=== PATIENT | female | born 1985 | race American Indian/Alaskan Native ===

== ENCOUNTER 2021-06-05 14:45 | Emergency (ER) | payer MEDICARE ==
[2021-06-05] MEDS ORDERED: TETANUS,DIPH,PERTUSS(ACELL) VACCINE 0.5 ML SYRINGE IM ONE (16:46)
--- NOTE | 2021-06-05 16:49 | Emergency Department Report ---
HPI - General Chief Complaint: Psych Time Seen by Provider: 06/05/21 16:14 - HPI HPI: MSE 3 The patient is a 36-year-old female present with a chief complaint of suicidal ideation. The patient states she woke up this morning tearful feeling depressed and suicidal. Patient states she used a razor to make superficial abrasions to her left wrist earlier today. Patient denies any other attempts at harming herself. The patient is uncertain when she last received a tetanus shot ED Past Medical Hx - Past Medical History Hx Psychiatric Treatment: Yes (Manic depression, OCD, PTSD) Additional medical history: Anemia - Surgical History Additional Surgical History: Oral surgery - Family History Family history: no significant - Social History Smoking Status: Current Every Day Smoker (1 pack/day) Substance Use Type: Marijuana - Medications Home Medications: Home Medications Medication Instructions Recorded Confirmed Last Taken Type Sertraline [Zoloft] 25 mg PO QDAY #30 tab 06/06/21 Unknown Rx busPIRone [Buspar] 5 mg PO BID #60 tab 06/06/21 Unknown Rx ED Review of Systems ROS: Stated complaint: MENTAL HEALTH Other details as noted in HPI Constitutional: no symptoms reported Eyes: denies: eye pain ENT: denies: throat pain Respiratory: no symptoms reported Cardiovascular: denies: chest pain Endocrine: no symptoms reported Gastrointestinal: denies: abdominal pain Genitourinary: denies: dysuria Musculoskeletal: denies: back pain Neurological: denies: headache Psychiatric: depression, suicidal thoughts Physical Exam - Physical Exam Vital Signs: Vital Signs 06/05/21 14:51 Temperature 98.7 F Pulse Rate 102 H Respiratory 20 Rate Blood Pressure 135/82 [Right] O2 Sat by Pulse 100 Oximetry Physical Exam: GENERAL: The patient is well-developed well-nourished female lying on stretcher not appearing to be in acute distress. [] HEENT: Normocephalic. Atraumatic. Extraocular motions are intact. Patient has moist mucous membranes. NECK: Supple. Trachea midline CHEST/LUNGS: Clear to auscultation. There is no respiratory distress noted. HEART/CARDIOVASCULAR: Regular. There is no tachycardia. There is no gallop rub or murmur. ABDOMEN: Abdomen is soft, nontender. Patient has normal bowel sounds. There is no abdominal distention. SKIN: There are several linear superficial abrasions to the left wrist. No lac erations seen. There is no diaphoresis. NEURO: The patient is awake, alert, and oriented. The patient is cooperative. The patient has no focal neurologic deficits. The patient has normal speech. GCS 15 MUSCULOSKELETAL: There is no evidence of acute injury. ED Course Vital Signs 06/05/21 14:51 Temperature 98.7 F Pulse Rate 102 H Respiratory 20 Rate Blood Pressure 135/82 [Right] O2 Sat by Pulse 100 Oximetry ED Medical Decision Making - Lab Data Result diagrams: 06/05/21 16:38 06/05/21 16:38 Laboratory Tests 06/05/21 06/05/21 06/05/21 16:38 16:38 16:38 WBC 8.4 RBC 4.30 Hgb 7.7 L Hct 26.3 L MCV 61 L MCH 18 L MCHC 29 L RDW 19.1 H Plt Count 399 Lymph % (Auto) 20.5 [place] % (Auto) 7.1 Eos % (Auto) 0.9 Baso % (Auto) 1.2 Lymph # (Auto) 1.7 [place] # (Auto) 0.6 Eos # (Auto) 0.1 Baso # (Auto) 0.1 Seg Neutrophils % 70.3 H Seg Neutrophils # 5.9 Sodium 141 Potassium 3.2 L Chloride 100.8 Carbon Dioxide 24 Anion Gap 19 BUN 5 L Creatinine 0.6 Estimated GFR > 60 BUN/Creatinine Ratio 8 Glucose 84 Calcium 9.1 Total Bilirubin 0.50 AST 8 ALT < 5 L Alkaline Phosphatase 48 Total Protein 8.3 H Albumin 4.1 Albumin/Globulin Ratio 1.0 HCG, Qual Salicylates < 0.3 L Acetaminophen Plasma/Serum Alcohol 06/05/21 06/05/21 06/05/21 16:38 16:38 16:38 WBC RBC Hgb Hct MCV MCH MCHC RDW Plt Count Lymph % (Auto) [place] % (Auto) Eos % (Auto) Baso % (Auto) Lymph # (Auto) [place] # (Auto) Eos # (Auto) Baso # (Auto) Seg Neutrophils % Seg Neutrophils # Sodium Potassium Chloride Carbon Dioxide Anion Gap BUN Creatinine Estimated GFR BUN/Creatinine Ratio Glucose Calcium Total Bilirubin AST ALT Alkaline Phosphatase Total Protein Albumin Albumin/Globulin Ratio HCG, Qual Negative Salicylates Acetaminophen 5.0 L Plasma/Serum Alcohol < 0.01 - Differential Diagnosis Suicidal ideation Critical care attestation.: If time is entered above; I have spent that time in minutes in the direct care of this critically ill patient, excluding procedure time. ED Disposition Clinical Impression: Suicidal ideation, Abrasion of wrist, left, Bipolar disorder Disposition: 01 HOME / SELF CARE / HOMELESS Is pt being admited?: No Does the pt Need Aspirin: No Condition: Stable Instructions: Managing Bipolar Disorder, Suicidal Feelings: How to Help Yourself, Abrasion, [id number] Additional Instructions: Professional and Agency Contacts To help Resolve Crises(22/01) OR Crisis Line: Suicide Prevention Line: Crisis Text Line: Text START to [phone] Emergency: 911 Outpatient COMMUNITY Behavioral Health Resources: [facility]: [facility] [address] [place], [place] [address] ULISSES: [facility] [address] [place] [address] SIL[place]: [facility] - [address] [place] [address] Sunday thru Sunday - 8am - 5pm [facility] Service Address: [address] [place] [address] GIO: [facility] Address: [address] [place] [address] Sunday thru Sunday- 7am-2pm [facility] Address: [address] [place] [address] Sunday thru Sunday: 8:30AM-5PM . Prescriptions: busPIRone [Buspar] 5 mg PO BID #60 tab Sertraline [Zoloft] 25 mg PO QDAY #30 tab Referrals: PRIMARY CARE, [Primary Care Provider] - 3-5 Days
[2021-06-05 16:53] LABS: Basophils # (Auto) 0.1 K/mm3 (0.0-0.1); Basophils % (Auto) 1.2 % (0.0-1.8); Eosinophils # (Auto) 0.1 K/mm3 (0.0-0.4); Eosinophils % (Auto) 0.9 % (0.0-4.3); Lymphocytes # (Auto) 1.7 K/mm3 (1.2-5.4); Lymphocytes % (Auto) 20.5 % (13.4-35.0); Mean Corpuscular HGB Conc 29 % (30-34); Monocytes # (Auto) 0.6 K/mm3 (0.0-0.8); Monocytes % (Auto) 7.1 % (0.0-7.3); Platelet Count 399 K/mm3 (140-440); Red Cell Distribution Width 19.1 % (13.2-15.2)
[2021-06-05 17:09] LABS: Hematocrit 26.3 % (30.3-42.9); Hemoglobin 7.7 gm/dl (10.1-14.3); Mean Corpuscular Volume 61 fl (79-97)
[2021-06-05 17:17] LABS: Albumin 4.1 g/dL (3.9-5); Blood Urea Nitrogen 5 mg/dL (7-17); Calcium 9.1 mg/dL (8.4-10.2); Hemolysis Index 3
[2021-06-05 17:19] LABS: Alanine Aminotransferase < 5 units/L (7-56); BUN/Creatinine Ratio 8
[2021-06-05] MEDS ORDERED: POTASSIUM CHLORIDE ER 20 MEQ TAB PO ONE (19:40)
[2021-06-05] MEDS ORDERED: LORazepam 1 MG TAB PO ONE (23:52)
[2021-06-06 02:09] LABS: Amphetamine Screen,Urine Negative; Benzodiazepines Screen,Urine Negative; Cocaine Screen,Urine Negative; Methadone Screen,Urine Negative; Opiate Screen,Urine Negative
[2021-06-06 02:42] LABS: Cannabinoid Screen,Urine PRESUMPTIVE POSITIVE
[2021-06-06 02:50] LABS: Bilirubin,Urine NEG (Negative); Blood,Urine LG (Negative); Color,Urine Amber (Yellow); Mucus,Urine 3+ /HPF
[2021-06-06 03:11] LABS: RBC,Urine > 182.0 /HPF (0.0-6.0)
--- NOTE | 2021-06-06 12:08 | Consultation ---
History of Present Illness - Reason for Consult Consult date: 06/06/21 Reason for consult: SI, anxiety - History of Present Psychiatric Illness The patient was seen today. She is calm and cooperative. She is a/o x 3. The patient says she came in for depression and feeling suicidal. She says she took her fingernails and scratched her wrist because she was so anxious. I asked the patient again what she cut herself with. She says "I took my nails and did it." She shows me superficial scratches on her wrist. The patient says "my anxiety got the best of me." She says "but whatever they game me for my anxiety helped and it slowed my thoughts down. It made me think." The patient says she feels better. The patient says "I'm not suicidal and I don't feel anxious anymore either." She is asking me to send her home "with the little white pill they gave me for anxiety." The patient then says "it was the lack of sleep. Last night was the first night I slept in days." The patient says she has a history of PTSD, OCD, manic depressive, and Bipolar." She says she lives with her and her children. The patient denies illicit drug use outside of THC, and alcohol. The p atient says she's from "[facility] and has only been here 4 months." PAST PSYCHIATRIC HISTORY: Diagnoses: Bipolar, OCD, PTSD Suicide attempts or Self-harm behavior: Denies Prior psychiatric hospitalizations: yes Substance Abuse history: Denies Previous psychiatric medications tried: denies Outpatient treatment: Denies PAST MEDICAL HISTORY: None reported or document Family Psychiatric History: None reported or documented SOCIAL HISTORY Marital Status: states Living Arrangements: states with and kids Employment Status: unemployed Access to guns/weapons: Denies Education: History of Abuse: Denies Legal History: Denies REVIEW OF SYSTEMS Constitutional: Negative for weight loss ENT: Negative for stridor Respiratory: Negative for cough or hemoptysis All other systems reviewed and are negative MENTAL STATUS EXAMINATION General Appearance and Behavior: Age appropriate, good hygiene, wearing appropriate clothes. calm, cooperative Cooperation: cooperative Psychomotor Behavior: Psychomotor normal Mood: better Affect and affective range: congruent with stated mood Thought Process: goal directed Thought Content: None Speech: Normal tone and pace Suicidal Ideation: Denies Homicidal Ideation: Denies Hallucinations: Denies Delusions: None elicited Impulse Control: Limited Insight and Judgment: Limited Memory: limited Attention: Attentive Orientation: alert and oriented Assessment and Plan (1) Bipolar Disorder Treatment Plan d/c 1013 Zoloft 25mg po daily Buspar 5mg po BID Sitter: Per primary Medical: per primary Disposition: Do not recommend acute psychiatric inpatient Dye Room Helper to give the patient all necessary resources and discuss safety plan Will sign off. Thanks Case staffed with Dr Guerrero Medications and Allergies Allergies Allergy/AdvReac Type Severity Reaction Status Date / Time Penicillins Allergy Rash Verified 06/05/21 14:51 Home Medications Medication Instructions Recorded Confirmed Last Taken Type Sertraline [Zoloft] 25 mg PO QDAY #30 tab 06/06/21 Unknown Rx busPIRone [Buspar] 5 mg PO BID #60 tab 06/06/21 Unknown Rx Mental Status Exam - Vital signs Last Vital Signs Temp 98.7 F 06/05/21 14:51 Pulse 102 H 06/05/21 14:51 Resp 20 06/05/21 14:51 BP 135/82 06/05/21 14:51 Pulse Ox 98 06/06/21 09:16 Results Result Diagrams: 06/05/21 16:38 06/05/21 16:38 Abnormal lab results 06/05/21 06/05/21 06/05/21 Range/Units 16:38 16:38 16:38 Hgb 7.7 L (10.1-14.3) gm/dl Hct 26.3 L (30.3-42.9) % MCV 61 L (79-97) fl MCH 18 L (28-32) pg MCHC 29 L (30-34) % RDW 19.1 H (13.2-15.2) % Seg Neutrophils % 70.3 H (40.0-70.0) % Potassium 3.2 L (3.6-5.0) mmol/L BUN 5 L (7-17) mg/dL ALT < 5 L (7-56) units/L Total Protein 8.3 H (6.3-8.2) g/dL Ur Specific [place] (1.003-1.030) Urine WBC (Auto) (0.0-6.0) /HPF Salicylates < 0.3 L (2.8-20.0) mg/dL Acetaminophen (10.0-30.0) ug/mL 06/05/21 06/06/21 Range/Units 16:38 01:07 Hgb (10.1-14.3) gm/dl Hct (30.3-42.9) % MCV (79-97) fl MCH (28-32) pg MCHC (30-34) % RDW (13.2-15.2) % Seg Neutrophils % (40.0-70.0) % Potassium (3.6-5.0) mmol/L BUN (7-17) mg/dL ALT (7-56) units/L Total Protein (6.3-8.2) g/dL Ur Specific [place] 1.031 H (1.003-1.030) Urine WBC (Auto) 26.0 H (0.0-6.0) /HPF Salicylates (2.8-20.0) mg/dL Acetaminophen 5.0 L (10.0-30.0) ug/mL All other labs normal.
[2021-06-06 13:20] VITALS: BP 112/60
--- NOTE | 2021-06-06 15:53 | Emergency Department Report ---
Blank Doc - Documentation Documentation: 36-year-old female medically cleared and then subsequently cleared by [facility] for discharge with meds. Vital signs unremarkable. No events documented overnight
== END 2021-06-06 16:21 | disposition home or self-care (01) ==
LOC: ED 14:45
DX: R45.851 Suicidal ideations (principal); F31.9 Bipolar disorder, unspecified; S60.812A Abrasion of left wrist, initial encounter; F17.200 Nicotine dependence, unspecified, uncomplicated; F12.90 Cannabis use, unspecified, uncomplicated; Z79.899 Other long term (current) drug therapy; X58.XXXA Exposure to other specified factors, initial encounter; Y93.89 Activity, other specified; Y92.89 Other specified places as the place of occurrence of the external cause; Y99.8 Other external cause status
CPT/HCPCS: 36415; 80053; 80307; 80320; 81001; 84703; 85025; 87086; 90471; 90715; 99284; G0480